=== PATIENT | female | born 1945 | race Caucasian/White ===

== ENCOUNTER → 2024-01-14 08:00 | Outpatient (REF) | payer MEDICARE, BC, SELFPAY | LOC: HWRAD 08:00 | PROVIDERS: ATTENDING PHYSICIAN Anesthesiology Pain Medicine; FAMILY PHYSICIAN Internal Medicine | DX: M79.18 Myalgia, other site (principal); M25.552 Pain in left hip | CPT/HCPCS: 73502 ==

== ENCOUNTER → 2024-01-21 07:05 | Outpatient (REF) | payer MEDICARE, BC, SELFPAY | LOC: RAD 07:05 | PROVIDERS: ATTENDING PHYSICIAN Anesthesiology Pain Medicine; FAMILY PHYSICIAN Internal Medicine | DX: M79.18 Myalgia, other site (principal); M79.604 Pain in right leg | CPT/HCPCS: 76882 ==